=== PATIENT | female | born 1955 | race Hispanic/Latino ===

== ENCOUNTER 2019-08-05 05:46 | Day surgery (SDC) | payer MEDICARE ==
[~2019-08-05] VITALS: Ht 157.5 cm; Wt 115.7 kg
[~2019-08-05 05:46] MED LIST: CALC-116 PO; CHOL200074 PO; FERS325 PO; FOLI0.4T2 PO
[2019-08-05] MEDS ORDERED: SODIUM CHLORIDE 0.9% 1000ML 1,000 ML IV ONE (05:55)
[2019-08-05 06:24] VITALS: BP 162/76
[2019-08-05] MEDS ORDERED: PROPOFOL 10 MG/ML 20ML VIAL IV ONE (06:45)
[2019-08-05] MEDS ORDERED: LIDOCAINE HCL 1% 20 ML VIAL ONE (06:45)
[2019-08-05 07:14] VITALS: BP 108/40
[2019-08-05 07:19] VITALS: BP 126/74
[2019-08-05 07:24] VITALS: BP 130/62
[2019-08-05 07:29] VITALS: BP 127/63
== END 2019-08-05 08:40 | disposition home or self-care (01) ==
LOC: ENDO 05:46 → DAH 05:46 → ENDO 08:40
PROVIDERS: ATTEND Internal Medicine
DX: D50.9 Iron deficiency anemia, unspecified (principal); K29.50 Unspecified chronic gastritis without bleeding; K57.30 Diverticulosis of large intestine without perforation or abscess without bleeding; K64.0 First degree hemorrhoids; K92.0 Hematemesis; R13.10 Dysphagia, unspecified; K44.9 Diaphragmatic hernia without obstruction or gangrene; E66.01 Morbid (severe) obesity due to excess calories; Z79.899 Other long term (current) drug therapy; Z98.890 Other specified postprocedural states; Z68.42 Body mass index [BMI] 45.0-49.9, adult
CPT/HCPCS: 43239; 45378; 88305; A4215; A4221; A4222; A4223; A4606; A4615; A4663; J2704; J7030